=== PATIENT | female | born 1955 | race Two or more races ===

== ENCOUNTER 2021-08-05 08:17 | Outpatient (CLI) | payer OTHER | END 2021-08-05 08:25 | disposition home or self-care (01) | LOC: NUCLEAR 08:17 | PROVIDERS: ATTEND Internal Medicine Cardiovascular Disease | DX: I82.403 Acute embolism and thrombosis of unspecified deep veins of lower extremity, bilateral (principal) ==

== ENCOUNTER 2024-01-11 13:35 | Emergency (ER) | payer OTHER ==
[~2024-01-11] VITALS: Ht 152.4 cm; Wt 66.2 kg
[2024-01-11] MEDS ORDERED: TOPROL XL25 M1 PO (14:26)
[2024-01-11] MEDS ORDERED: ORENITRAM ER0.125 MG PO (14:27)
[2024-01-11] MEDS ORDERED: GLUMETZA1000 MG PO (14:27)
[2024-01-11 17:09] LABS: HEMATOCRIT 32.1 % (36.0-45.00); HEMOGLOBIN 10.5 g/dL (12.0-15.00); MEAN CELL VOLUME 87.2 fL (80.00-100.00); MEAN CORPUSCULAR HEMOGLOBIN 28.5 pg (27.00-32.0); MEAN CORPUSCULAR HGB CONC 32.7 g/dl (32.0-36.0); PLATELET COUNT 273 K/uL (150-450); RED BLOOD COUNT 3.68 M/uL (4.00-6.00); RED CELL DISTRIBUTION WIDTH 14.1 % (11.5-14.5)
[2024-01-11] MEDS ORDERED: FAMOTIDINE/PF 20 MG in 0.9 % SODIUM CHLORIDE 8 ML IV PUSH STA (17:27)
[2024-01-11] MEDS ORDERED: HYOSCYAMINE SULFATE 0.125 MG TAB.SUBL SL ONE (17:30)
[2024-01-11] MEDS ORDERED: 0.9 % SODIUM CHLORIDE 1,000 ML IV SCH (17:30)
[2024-01-11] MEDS ORDERED: ONDANSETRON HCL 2 MG/ML VIAL IV ONE (17:30)
[2024-01-11 17:34] LABS: PH,URINE 5.5 (5.0-8.0); URINE APPEARANCE Clear; URINE BILIRRUBIN Negative (NEGATIVE); URINE BLOOD Negative; URINE COLOR Yellow; URINE GLUCOSE Negative (NEGATIVE); URINE LEUKOCYTE Small; URINE NITRATE Negative; URINE PROTEIN Trace (NEGATIVE); URINE UROBILINOGEN 0.2 E.U./dl
[2024-01-11 17:38] LABS: URINE EPITHELIAL CELLS 40.9 uL (0.0-38.8); URINE RBC 15.8 uL (0.0-20.8); URINE WBC 8.1 uL (0.0-23.2)
[2024-01-11 17:46] LABS: ALKALINE PHOSPHATASE 51 U/L (50-136); ALT/SGPT 14 U/L (12-78); AMYLASE 32 U/L (25-115); ANION GAP 10 (10.0-20.0); AST/SGOT 9 U/L (15-37); BILIRUBIN TOTAL 0.28 mg/dL (0.3-1.2); BILIRUBIN,CONJUGATED < 0.10 mg/dL (0.0-0.2); BILIRUBIN,UNCONJUGATED 0.18 mg/dL (0.0-0.6); BLOOD UREA NITROGEN 18 mg/dL (7-18); BUN CREA RATIO 26 (7.0-25.0); CARBON DIOXIDE 27 mEq/L (21-32); CHLORIDE 109 mmol/L (98-107); CREATININE SERUM 0.68 mg/dL (0.55-1.02); GLOBULINA 2.9 G/DL (2.4-3.5); GLUCOSE FASTING 115 mg/dL (65-100); LIPASE 24 U/L (13-75); OSMOLALITY SERUM 286 MOSM/KG (275-295); POTASSIUM 4.15 mEq/L (3.5-5.1); SODIUM 142 mmol/L (136-145); TOTAL PROTEIN 5.9 gm/dL (6.4-8.2)
[2024-01-11 18:03] LABS: URINE MUCUS SCANT
[2024-01-12 07:58] LABS: HEMATOCRIT 31.6 % (36.0-45.00); HEMOGLOBIN 10.5 g/dL (12.0-15.00); MEAN CELL VOLUME 87.2 fL (80.00-100.00); MEAN CORPUSCULAR HGB CONC 33.2 g/dl (32.0-36.0); PLATELET COUNT 246 K/uL (150-450); RED BLOOD COUNT 3.62 M/uL (4.00-6.00); RED CELL DISTRIBUTION WIDTH 14.1 % (11.5-14.5)
[2024-01-12 08:25] LABS: INR 1.02; PARTIAL THROMBOPLASTIN TIME 30.7 SECONDS (22.0-34.0); PROTHROMBIN TIME 10.7 SECONDS (9.0-11.5)
[2024-01-12 08:27] LABS: BILIRUBIN TOTAL 0.41 mg/dL (0.3-1.2); CREATININE SERUM 0.66 mg/dL (0.55-1.02); GFR 89.33; GLOBULINA 3.1 G/DL (2.4-3.5); POTASSIUM 3.79 mEq/L (3.5-5.1); TOTAL PROTEIN 6.1 gm/dL (6.4-8.2)
== END 2024-01-12 11:19 | disposition home or self-care (01) ==
LOC: ER 13:35
PROVIDERS: Emergency Medicine
DX: K52.89 Other specified noninfective gastroenteritis and colitis (principal); R10.84 Generalized abdominal pain; I10 Essential (primary) hypertension; M06.8A Other specified rheumatoid arthritis, other specified site; Z88.6 Allergy status to analgesic agent
CPT/HCPCS: 36415; 74177; 74240; 96365; 96366; J2405; J3490; J7030; Q9965

== ENCOUNTER 2024-11-08 09:44 | Inpatient (IN) | payer OTHER ==
[~2024-11-08] VITALS: Ht 152.4 cm; Wt 66.7 kg
[~2024-11-08 09:44] MED LIST: GLUMETZA1000 MG PO; ORENITRAM ER0.125 MG PO; TOPROL XL25 M1 PO
[2024-11-08] MEDS ORDERED: SIMVASTATIN20 MG PO (10:17)
--- NOTE | 2024-11-08 10:19 | NUR ---
PTE REFIERE DOLOR ABDOMINAL DESDE HACE 2 DIAD . SE LE MARIS S/V Y SE UBICA EN PASILLO.
[2024-11-08] MEDS ORDERED: FAMOtidine 10 MG/ML (4ML VIAL) IV STA (10:51)
[2024-11-08] MEDS ORDERED: RINGERS SOLUTION,LACTATED 1,000 ML IV STA (10:53)
[2024-11-08] MEDS ORDERED: ONDANSETRON HCL 2 MG/ML VIAL IV ONE (11:00)
--- NOTE | 2024-11-08 11:02 | NUR ---
RN PETERSEN ORIENTA PTE SOBRE TX, REFIERE ENTENDER Y ACEPTAR. LE MARIS MUESTRAS DE LABORATORIO, LE CANALIZA Y LE ADMINISTRA MEDICAMENTOS CAROLE ORDEN MEDICA. PENDIENTE ENTREGA DE MUESTRA PARA U/A.
[2024-11-08 11:25] LABS: HEMATOCRIT 38.2 % (36.0-45.00); HEMOGLOBIN 12.6 g/dL (12.0-15.00); MEAN CELL VOLUME 87.5 fL (80.00-100.00); MEAN CORPUSCULAR HEMOGLOBIN 28.9 pg (27.00-32.0); MEAN CORPUSCULAR HGB CONC 33.1 g/dl (32.0-36.0); PLATELET COUNT 349 K/uL (150-450); RED BLOOD COUNT 4.37 M/uL (4.00-6.00); RED CELL DISTRIBUTION WIDTH 14.6 % (11.5-14.5)
[2024-11-08 11:53] LABS: CALCIUM 10.1 mg/dL (8.5-10.1); CREATININE SERUM 0.77 mg/dL (0.55-1.02); GFR 74.55; POTASSIUM 4.23 mEq/L (3.5-5.1)
[2024-11-08 11:55] LABS: PH,URINE 6.5 (5.0-8.0); URINE APPEARANCE Clear; URINE BILIRRUBIN Small (NEGATIVE); URINE BLOOD Negative; URINE COLOR Dark Yellow; URINE GLUCOSE Negative (NEGATIVE); URINE KETONE 15 (NEGATIVE); URINE LEUKOCYTE Small; URINE NITRATE Negative
[2024-11-08 11:56] LABS: URINE BACTERIA 24.4 uL (0.0-1933); URINE EPITHELIAL CELLS 29.5 uL (0.0-38.8); URINE RBC 38.7 uL (0.0-20.8); URINE WBC 7.7 uL (0.0-23.2)
[2024-11-08 12:24] LABS: URINE CAST 1.32 uL (0.0-1.40); URINE PROTEIN 100 (NEGATIVE)
[2024-11-08 12:25] LABS: URINE MUCUS MODERATE
--- NOTE | 2024-11-08 14:09 | NUR ---
SE COLOCA NGT TO SERENA LADO ABBY CUAL DRENA [address] CON SECRESIONES COLOR AMARILLO INTENSO, SIN [place].
[2024-11-08] MEDS ORDERED: MEPERIDINE HCL/PF 25 MG/ML VIAL IV ONE (17:15)
[2024-11-08] MEDS ORDERED: CEFTRIAXONE SODIUM 1,000 MG VIAL IV ONE (21:30)
[2024-11-08] MEDS ORDERED: 0.9 % SODIUM CHLORIDE 1,000 ML IV ONE (21:30)
--- NOTE | 2024-11-09 02:49 | NUR ---
PTE ALERTA Y ORIENTADA X3 SE RECIBE DE TURNO ANTERIOR. SE OBSERVA CON NGT PATENTE. CON IVF EN MANO RT, PATENTE. PTE EN ESPERA A SER CONSULTADA.
[2024-11-09] MEDS ORDERED: 0.9 % SODIUM CHLORIDE 1,000 ML IV SCH (09:00)
[2024-11-09] MEDS ORDERED: PIPERACILLIN/TAZOBACTAM SODIUM 3.375 GM in DEXTROSE 5 % IN WATER 100 ML IV SCH (09:07)
[2024-11-09] MEDS ORDERED: FAMOTIDINE/PF 20 MG/2 ML VIAL IV SCH (09:07)
[2024-11-09] MEDS ORDERED: ENALAPRILAT DIHYDRATE 1.25 MG/ML VIAL IV PRN (09:15)
[2024-11-09] MEDS ORDERED: DEXTROSE 50 % IN WATER 0.5 G/ML DISP.SYRIN IV PRN (09:15)
[2024-11-09] MEDS ORDERED: MEPERIDINE HCL 25 MG/ML AMPUL IM PRN (09:15)
[2024-11-09] MEDS ORDERED: INSULIN LISPRO 1,000 UNIT/10 ML UNITS SUBCUTANEO PRN (09:15)
[2024-11-09 13:29] VITALS: BP 108/69; O2SAT 98
[2024-11-09 17:33] VITALS: BP 134/70; O2SAT 96
[2024-11-10 03:19] VITALS: BP 115/70; O2SAT 96
[2024-11-10 07:51] LABS: HEMATOCRIT 30.9 % (36.0-45.00); MEAN CELL VOLUME 89.2 fL (80.00-100.00); MEAN CORPUSCULAR HGB CONC 32.5 g/dl (32.0-36.0); PLATELET COUNT 236 K/uL (150-450); RED BLOOD COUNT 3.46 M/uL (4.00-6.00); RED CELL DISTRIBUTION WIDTH 14.7 % (11.5-14.5)
[2024-11-10 07:53] LABS: MEAN CORPUSCULAR HEMOGLOBIN 28.9 pg (27.00-32.0)
[2024-11-10 08:16] LABS: ALBUMIN 2.6 gm/dL (3.4-5.0); BILIRUBIN TOTAL 0.49 mg/dL (0.3-1.2); CALCIUM 8.1 mg/dL (8.5-10.1); CREATININE SERUM 0.71 mg/dL (0.55-1.02); GFR 81.86; GLOBULINA 2.4 G/DL (2.4-3.5); POTASSIUM 4.13 mEq/L (3.5-5.1); TSH 1.53 uIU/mL (0.358-3.74)
[2024-11-10 09:26] LABS: URINE APPEARANCE Cloudy; URINE BILIRRUBIN Negative (NEGATIVE); URINE BLOOD Negative; URINE COLOR Yellow; URINE GLUCOSE Negative (NEGATIVE); URINE LEUKOCYTE Negative; URINE NITRATE Negative; URINE PROTEIN 30 (NEGATIVE); URINE UROBILINOGEN 0.2 E.U./dl
[2024-11-10 09:30] LABS: URINE BACTERIA 25.7 uL (0.0-1933); URINE RBC 15.7 uL (0.0-20.8)
[2024-11-10 09:49] VITALS: BP 154/84; O2SAT 96
[2024-11-10 10:47] LABS: URINE KETONE 40 (NEGATIVE)
[2024-11-10 10:49] LABS: URINE CRYSTALS MANY /HPF
[2024-11-10] MEDS ORDERED: DIATRIZOATE MEGLUMINE, SODIUM 30 ML BOTTLE PO NR (15:00)
[2024-11-10 19:02] VITALS: BP 130/70; O2SAT 98
[2024-11-11 00:57] VITALS: BP 120/67; O2SAT 99
[2024-11-11 09:06] VITALS: BP 137/68; O2SAT 100
[2024-11-11] MEDS ORDERED: BISACODYL 10 MG/SUPP.RECT SUPP.RECT RECTAL NR (11:00)
[2024-11-11] MEDS ORDERED: DEXTROSE 5 % IN WATER 1,000 ML IV SCH (14:15)
[2024-11-11 19:07] VITALS: BP 136/59
[2024-11-12 02:11] VITALS: BP 139/74; O2SAT 95
[2024-11-12 07:44] VITALS: BP 126/71; O2SAT 99
[2024-11-12] MEDS ORDERED: ENOXAPARIN SODIUM 40 MG/0.4 ML SYRINGE SUBCUTANEO SCH (09:00)
[2024-11-12 11:01] LABS: HEMATOCRIT 31.8 % (36.0-45.00); HEMOGLOBIN 10.5 g/dL (12.0-15.00); MEAN CELL VOLUME 88.4 fL (80.00-100.00); MEAN CORPUSCULAR HEMOGLOBIN 29.1 pg (27.00-32.0); PLATELET COUNT 280 K/uL (150-450); RED BLOOD COUNT 3.59 M/uL (4.00-6.00); RED CELL DISTRIBUTION WIDTH 14.4 % (11.5-14.5)
== END 2024-11-12 14:30 | disposition home or self-care (01) | DRG 390 ==
LOC: ER 09:46 → SEC-K 11-09 09:30 → MEDI 11-09 11:21
PROVIDERS: General Practice; Internal Medicine; ADMIT Student in an Organized Health Care Education/Training Program; ATTEND Student in an Organized Health Care Education/Training Program
DX: K56.609 Unspecified intestinal obstruction, unspecified as to partial versus complete obstruction (principal); R10.9 Unspecified abdominal pain; E11.69 Type 2 diabetes mellitus with other specified complication; K56.50 Intestinal adhesions [bands], unspecified as to partial versus complete obstruction; Z20.822 Contact with and (suspected) exposure to COVID-19

== ENCOUNTER 2024-12-17 07:14 | Outpatient (CLI) | payer OTHER ==
[~2024-12-17 07:14] MED LIST changes: +SIMVASTATIN20 MG PO
== END 2024-12-17 07:18 | disposition home or self-care (01) ==
LOC: TOM 07:14
PROVIDERS: ATTEND Internal Medicine Gastroenterology
DX: K56.609 Unspecified intestinal obstruction, unspecified as to partial versus complete obstruction (principal)

== ENCOUNTER 2025-05-08 06:37 | Inpatient (IN) | payer OTHER ==
[~2025-05-08] VITALS: Ht 152.4 cm; Wt 70.3 kg
[2025-05-08] MEDS ORDERED: MORPHINE SULFATE 4 MG/ML VIAL IV STA (07:41)
[2025-05-08] MEDS ORDERED: PROMETHAZINE HCL 50 MG/ML AMPUL IM STA (07:41)
[2025-05-08] MEDS ORDERED: PROMETHAZINE HCL 50 MG/ML AMPUL IM ONE (07:43)
[2025-05-08] MEDS ORDERED: 0.9 % SODIUM CHLORIDE 1,000 ML IV ONE (07:45)
[2025-05-08 08:17] LABS: BASO % 0.3 % (0.1-1.2); EOS # 0.22 (0.04-0.54); EOS % 2.3 % (0.7-7.0); HEMATOCRIT 37.1 % (34.1-44.9); LYMPH # 1.47 (1.18-3.74); LYMPH % 15.3 % (19.3-53.1); MEAN CORPUSCULAR HEMOGLOBIN 28.2 pg (25.6-32.2); MONO # 0.55 (0.24-0.82); MONO % 5.7 % (4.7-12.5); NEUT # 7.29 (1.56-6.13); NEUT % 76.1 % (34.0-71.1); PLATELET COUNT 324 K/uL (163-369); RED BLOOD COUNT 4.25 M/uL (3.93-5.22); RED CELL DISTRIBUTION WIDTH 14.7 % (11.6-14.4)
[2025-05-08 08:30] LABS: PH,URINE 5.5 (5.0-8.0); URINE APPEARANCE Clear; URINE BILIRRUBIN Negative (NEGATIVE); URINE BLOOD Negative; URINE COLOR Yellow; URINE GLUCOSE Negative (NEGATIVE); URINE KETONE Trace (NEGATIVE); URINE LEUKOCYTE Negative; URINE NITRATE Negative; URINE PROTEIN Trace (NEGATIVE); URINE UROBILINOGEN 0.2 E.U./dl
[2025-05-08 08:37] LABS: URINE BACTERIA 12.2 uL (0.0-1933); URINE EPITHELIAL CELLS 13.7 uL (0.0-38.8)
[2025-05-08 08:40] LABS: URINE CAST 0.14 uL (0.0-1.40)
[2025-05-08 09:06] LABS: ALBUMIN 3.6 gm/dL (3.4-5.0); BILIRUBIN TOTAL 0.6 mg/dL (0.3-1.2); BILIRUBIN,CONJUGATED 0.14 mg/dL (0.0-0.2); BILIRUBIN,UNCONJUGATED 0.46 mg/dL (0.0-0.6); CALCIUM 9.6 mg/dL (8.5-10.1); CREATININE SERUM 0.72 mg/dL (0.55-1.02); GFR 80.31; GLOBULINA 3.5 G/DL (2.4-3.5); POTASSIUM 4.51 mEq/L (3.5-5.1); TOTAL PROTEIN 7.1 gm/dL (6.4-8.2)
[2025-05-08 09:19] LABS: PARTIAL THROMBOPLASTIN TIME 27.1 SECONDS (22.0-34.0); PROTHROMBIN TIME 10.9 SECONDS (9.0-11.5)
[2025-05-08] MEDS ORDERED: DIATRIZOATE MEGLUMINE, SODIUM 30 ML BOTTLE ONE (11:57)
[2025-05-08] MEDS ORDERED: 0.9 % SODIUM CHLORIDE 1,000 ML IV SCH (18:45)
[2025-05-08] MEDS ORDERED: DEXTROSE 50 % IN WATER 0.5 G/ML DISP.SYRIN IV PRN (19:00)
[2025-05-08] MEDS ORDERED: ONDANSETRON HCL 4 MG in 0.9 % SODIUM CHLORIDE 50 ML IV PRN (19:00)
[2025-05-08] MEDS ORDERED: INSULIN LISPRO 1,000 UNIT/10 ML UNITS SUBCUTANEO PRN (19:00)
[2025-05-08] MEDS ORDERED: MORPHINE SULFATE 4 MG/ML CARTRIDGE IV PRN (19:00)
[2025-05-08] MEDS ORDERED: PIPERACILLIN/TAZOBACTAM SODIUM 3.375 GM VIAL IV ONE (19:07)
[2025-05-08] MEDS ORDERED: PIPERACILLIN/TAZOBACTAM SODIUM 3.375 GM in DEXTROSE 5 % IN WATER 100 ML IV SCH (20:00)
[2025-05-09 01:11] VITALS: BP 133/71; O2SAT 96
[2025-05-09 08:54] VITALS: BP 121/74; O2SAT 94
[2025-05-09] MEDS ORDERED: METOPROLOL SUCCINATE 25 MG TAB.SR.24H PO SCH (09:00)
[2025-05-09] MEDS ORDERED: FAMOTIDINE/PF 20 MG in 0.9 % SODIUM CHLORIDE 8 ML IV PUSH SCH (09:00)
[2025-05-09] MEDS ORDERED: METOCLOPRAMIDE HCL 5 MG/ML VIAL IV SCH (13:00)
[2025-05-09 17:04] VITALS: BP 102/64; O2SAT 93
[2025-05-09] MEDS ORDERED: DEXTROSE 5 % AND 0.9 % NACL 1,000 ML IV SCH (20:30)
[2025-05-10] VITALS: BP 115/72; O2SAT 96
[2025-05-10 08:56] VITALS: BP 117/63
[2025-05-10] MEDS ORDERED: BISACODYL 10 MG/SUPP.RECT SUPP.RECT RECTAL NR (14:30)
[2025-05-10 17:02] VITALS: BP 139/75; O2SAT 96
[2025-05-11] VITALS: BP 117/72; O2SAT 95
[2025-05-11 08:44] VITALS: BP 113/74
[2025-05-11 16:59] VITALS: BP 134/73; O2SAT 99
[2025-05-12] VITALS: BP 126/73; O2SAT 96
[2025-05-12 07:00] VITALS: BP 124/73; O2SAT 97
== END 2025-05-12 13:29 | disposition home or self-care (01) | DRG 390 ==
LOC: ER 06:43 → MEDI 19:06
PROVIDERS: General Practice; ADMIT Student in an Organized Health Care Education/Training Program; ATTEND Student in an Organized Health Care Education/Training Program
PROC: BW21YZZ Computerized Tomography (CT Scan) of Abdomen and Pelvis using Other Contrast (ICD-10-PCS; principal; 2025-05-08)
PROC: 0DH68UZ Insertion of Feeding Device into Stomach, Via Natural or Artificial Opening Endoscopic (ICD-10-PCS; 2025-05-08)
DX: K56.699 Other intestinal obstruction unspecified as to partial versus complete obstruction (principal); E11.9 Type 2 diabetes mellitus without complications; I10 Essential (primary) hypertension; Z79.4 Long term (current) use of insulin

== ENCOUNTER 2025-09-03 07:07 | Outpatient (CLI) | payer OTHER | END 2025-09-03 07:10 | disposition home or self-care (01) | LOC: TOM 07:07 | PROVIDERS: ATTEND Internal Medicine Gastroenterology | DX: R10.13 Epigastric pain (principal) | CPT/HCPCS: 74177; Q9965 ==